=== PATIENT | male | born 1995 | race Caucasian/White ===

== ENCOUNTER 2017-01-15 20:41 | Emergency (ER) | payer OTHER ==
--- NOTE | 2017-01-15 21:28 | ED NURSING NOTES ---
Clinical Report - Nurses [facility] [address] [place] [address] 01/15/2017 20:44 Patient: SAVITA CARNEY TRIAGE Triage time 20:52. Acuity: LEVEL 3. Chief Complaint: COUGH, RUNNY NOSE and SORE THROAT and (SOB). --20:58 Charlie Mensah R.N. 20:52 01/15/17. BP: 129/68. HR: 103. RR: 18. O2 saturation: 99%. Temp: 101.3 F. Pain level now 8/10. --20:58 Charlie Mensah R.N. Weight: 86.1 kg stated. Height/Length: 77 inches Per Patient. BMI: 22.5. --20:57 Charlie Mensah R.N. Medications None. --20:56 Charlie Mensah R.N. Medication/allergy information source: the patient. --20:58 Charlie Mensah R.N. Allergies No Known Drug Allergy. --20:56 Charlie Mensah R.N. History Arrived by private vehicle. Historian: patient. Accompanied by family. Onset. (3 days ago). ( Pt came in with cough, runny nose and sore throat. Pt has been feeling sick for a few days. His gf was recently sick. Pt stated that it feels like razor blades when he swallows.). He has had a nasal discharge and a headache. 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 PAST MEDICAL HX: Immunizations: up-to-date. SOCIAL HX: Smoker- current status unknown. Never smoker. No alcohol use or drug use. --20:58 Charlie Mensah R.N. PROBLEMS: Migraine Headache. Sinusitis. --20:56 Charlie Mensah R.N. Interventions ID band on patient. To treatment room. --20:58 Charlie Mensah R.N. PHYSICAL ASSESSMENT 21:00 01/15/17. Ambulatory to room. GENERAL / NEURO / PSYCH: Alert. Oriented X 4. Appears in no acute distress. HEENT: Right ear within normal limits. Left ear within normal limits. Pharyngeal erythema. Right-sided tonsillar exudate, swelling and erythema. Left-sided tonsillar swelling and erythema. RESPIRATORY: No respiratory distress. Respirations not labored. Breath sounds within normal limits. CVS: Heart sounds within normal limits. Pulses: right radial 2+ and left radial 2+. Capillary refill less than 2 seconds. SKIN: Skin is warm and dry. --00:43 Jan Owens R.N. NURSING PROGRESS NOTES Patient gowned. Two patient identifiers checked. Call light placed in reach. Side rails up x 1. Bed placed in lowest position. Brakes of bed on. --20:58 Charlie Mensah R.N. FABIÁN COMA SCORE: Fabián Coma Scale: 15- eyes open spontaneously (4); best verbal response- oriented x 4 (5); best motor response- obeys commands (6). --20:58 Charlie Mensah R.N. 21:16 01/15/2017 Motrin PO 800 mg given. Allergies verified and confirmed 5 rights. --21:16 Charlie Mensah R.N. 21:16 01/15/2017 Hydrocodone-APAP (Hydrocodone-Acetaminophen) PO 5/325 mg Tablets 1 tab given. Allergies verified, confirmed 5 rights and sedative warning given to the patient. --21:16 Charlie Mensah R.N. 21:17 01/15/2017 Dexamethasone (Dexamethasone) PO 8 mg given. Allergies verified and confirmed 5 rights. --21:17 Charlie Mensah R.N. 21:36 01/15/2017 Amoxicillin PO Tablets 500 mg given. Allergies verified and confirmed 5 rights. --21:36 McQuoid, Sonia, ER Tech1 00:43 01/16/2017 Motrin PO Response: no adverse reaction. --00:44 Jan Owens R.N. 00:44 01/16/2017 Hydrocodone-APAP PO Response: no adverse reaction. --00:44 Jan Owens R.N. 00:44 01/16/2017 Dexamethasone PO Response: no adverse reaction. --00:44 Jan Owens R.N. 00:44 01/16/2017 Amoxicillin PO Response: no adverse reaction. --00:44 Jan Owens R.N. DISPOSITION / DISCHARGE 22:00 01/15/17. Departure time: 2199Jan 15 2017. Condition at departure: stable. The goals identified in the patient's plan of care were met. No learning barriers present. Discharge instructions provided and reviewed with the patient. Reviewed medication(s) side effects, precautions, dosing and course information. Prescription(s) given to the patient (Savita verbalizes importance of finishing all prescribed antibiotic.). Patient verbalized understanding. Written instructions provided in Greenlandic. ( Savita verbalizes understanding of all d/c instructions including need to f/u with PCP. He has no questions and voices no concerns at this time.). The patient was discharged by the physician information assistant. He was discharged home and accompanied by nutrition instructor. He left the Emergency Department ambulatory and via private vehicle. Patient driving. FABIÁN COMA SCORE: Fabián Coma Scale: 15- eyes open spontaneously (4); best verbal response- oriented x 4 (5); best motor response- obeys commands (6). --00:42 Jan Owens R.N. 22:00 01/15/17. BP: 118/61 (regular adult cuff) taken on the left arm, via an automated monitor, while lying. HR: 84 (normal rate). RR: 16 (regular, unlabored and normal). O2 saturation: 100% on room air. Temp: 100.6 F (oral). Pain level now: 0/10. --00:42 Jan Owens R.N. Locked/Released at 01/16/2017 0:44 by Jan Owens R.N.
--- NOTE | 2017-01-15 21:28 | ED CLINICAL REPORT ---
Clinical Report - Physicians/Mid Levels [facility] [address] [place] [address] 01/15/2017 20:44 Patient: SAVITA CARNEY Time Seen: 21:16 Jan 15 2017. Arrived- By private vehicle. Historian- patient. HISTORY OF PRESENT ILLNESS Chief Complaint: SORE THROAT. This started just prior to arrival and is still present. Pain described as mild. The patient has had a sore throat. (She reports being all over the last 2 weeks, with flulike symptoms, now with a fever and sore throat. Denies any recent exposures to mono or strep pharyngitis. Reports a dry cough as well.). REVIEW OF SYSTEMS No fever, cough, diarrhea or abdominal pain. All systems otherwise negative, except as recorded above. PAST HISTORY Problems: Migraine Headache. Sinusitis. Medications: None. Allergies: No Known Drug Allergy. SOCIAL HISTORY Never smoker. No alcohol use or drug use. ADDITIONAL NOTES The nursing notes have been reviewed. PHYSICAL EXAM Vital Signs: 01/15/2017 20:52 BP: 129/68. HR: 103. RR: 18. O2 saturation: 99%. Temp: 101.3 F. Appearance: Alert. Head: Normal external inspection. Eyes: Conjunctivae and eyelids normal. ENT: Nose normal. Pharyngeal erythema. Tonsillar exudate present. Lips normal. No trismus present. Uvula midline. No muffled or hoarse voice, drooling, dental tenderness or trismus. Neck: Lymphadenopathy present. Trachea midline. CVS: Normal heart rate and rhythm. Heart sounds normal. Respiratory: No respiratory distress. Breath sounds normal. No rales. Abdomen: Soft. No organomegaly. No abdominal tenderness or rebound tenderness. Skin: No rash. LABS, X-RAYS, AND EKG Laboratory Tests: Culture, Strep Screen: (AVANI: 01/15/2017 20:55) ( MsgRcvd 01/15/2017 21:18) Final results Test Result Flag Units (Reference) RAPID STREP SCREEN - THROAT DATE: 01/15/17 NEGATIVE SCREEN: RAPID STREP SCREEN NEGATIVE; CONFIRMATION TO FOLLOW . PROGRESS AND PROCEDURES Course of Care: / centor criteria, No cough in the ER. Uvula midline, no signs of retropharyngeal abscess. Rapid strep negative. Patient very stable. Given a dose of dexamethasone, Zosyn and antibiotics in the ER. Patient agrees with plan to have high liquid diet. Otherwise stable. Tolerating own secretions well. Patient is stable. Physical exam findings are improved. Symptoms better. Patient/family counseled. Disposition: Discharged. Condition: good. CLINICAL IMPRESSION Acute streptococcal pharyngitis INSTRUCTIONS No strenuous activity. Do not work for one day. Rest. Drink plenty of fluids. Prescription Medications: Amoxicillin 500 mg tablets: Take 1 orally every 8 hours for 10 days. Dispense thirty (30). No refills. OTC Medications: Acetaminophen ER 650 mg (available over the counter): take 1 orally every 8 hours for 5 days, as needed for fever. Dispense fifteen (15). No refill. Motrin IB 200 mg (available over the counter): take 4 orally every 8 hours for 5 days, as needed for pain Follow-up: Follow up with your doctor in three days. (Electronically signed by Luanne Ocampo P.A.-C 01/15/2017 22:12)
--- NOTE | 2017-01-15 21:28 | ED CLINICAL REPORT ---
Clinical Report - Physicians/Mid Levels [facility] [address] [place] [address] 01/15/2017 20:44 Patient: SAVITA CARNEY Time Seen: 21:16 Jan 15 2017. Arrived- By private vehicle. Historian- patient. HISTORY OF PRESENT ILLNESS Chief Complaint: SORE THROAT. This started just prior to arrival and is still present. Pain described as mild. The patient has had a sore throat. (She reports being all over the last 2 weeks, with flulike symptoms, now with a fever and sore throat. Denies any recent exposures to mono or strep pharyngitis. Reports a dry cough as well.). REVIEW OF SYSTEMS No fever, cough, diarrhea or abdominal pain. All systems otherwise negative, except as recorded above. PAST HISTORY Problems: Migraine Headache. Sinusitis. Medications: None. Allergies: No Known Drug Allergy. SOCIAL HISTORY Never smoker. No alcohol use or drug use. ADDITIONAL NOTES The nursing notes have been reviewed. PHYSICAL EXAM Vital Signs: 01/15/2017 20:52 BP: 129/68. HR: 103. RR: 18. O2 saturation: 99%. Temp: 101.3 F. Appearance: Alert. Head: Normal external inspection. Eyes: Conjunctivae and eyelids normal. ENT: Nose normal. Pharyngeal erythema. Tonsillar exudate present. Lips normal. No trismus present. Uvula midline. No muffled or hoarse voice, drooling, dental tenderness or trismus. Neck: Lymphadenopathy present. Trachea midline. CVS: Normal heart rate and rhythm. Heart sounds normal. Respiratory: No respiratory distress. Breath sounds normal. No rales. Abdomen: Soft. No organomegaly. No abdominal tenderness or rebound tenderness. Skin: No rash. LABS, X-RAYS, AND EKG Laboratory Tests: Culture, Strep Screen: (AVANI: 01/15/2017 20:55) ( MsgRcvd 01/15/2017 21:18) Final results Test Result Flag Units (Reference) RAPID STREP SCREEN - THROAT DATE: 01/15/17 NEGATIVE SCREEN: RAPID STREP SCREEN NEGATIVE; CONFIRMATION TO FOLLOW . PROGRESS AND PROCEDURES Course of Care: / centor criteria, No cough in the ER. Uvula midline, no signs of retropharyngeal abscess. Rapid strep negative. Patient very stable. Given a dose of dexamethasone, Zosyn and antibiotics in the ER. Patient agrees with plan to have high liquid diet. Otherwise stable. Tolerating own secretions well. Patient is stable. Physical exam findings are improved. Symptoms better. Patient/family counseled. Disposition: Discharged. Condition: good. CLINICAL IMPRESSION Acute streptococcal pharyngitis INSTRUCTIONS No strenuous activity. Do not work for one day. Rest. Drink plenty of fluids. Prescription Medications: Amoxicillin 500 mg tablets: Take 1 orally every 8 hours for 10 days. Dispense thirty (30). No refills. OTC Medications: Acetaminophen ER 650 mg (available over the counter): take 1 orally every 8 hours for 5 days, as needed for fever. Dispense fifteen (15). No refill. Motrin IB 200 mg (available over the counter): take 4 orally every 8 hours for 5 days, as needed for pain Follow-up: Follow up with your doctor in three days. (Electronically signed by Luanne Ocampo P.A.-C 01/15/2017 22:12)
--- NOTE | 2017-01-15 21:28 | ED NURSING NOTES ---
Clinical Report - Nurses [facility] [address] [place] [address] 01/15/2017 20:44 Patient: SAVITA CARNEY TRIAGE Triage time 20:52. Acuity: LEVEL 3. Chief Complaint: COUGH, RUNNY NOSE and SORE THROAT and (SOB). --20:58 Charlie Mensah R.N. 20:52 01/15/17. BP: 129/68. HR: 103. RR: 18. O2 saturation: 99%. Temp: 101.3 F. Pain level now 8/10. --20:58 Charlie Mensah R.N. Weight: 86.1 kg stated. Height/Length: 77 inches Per Patient. BMI: 22.5. --20:57 Charlie Mensah R.N. Medications None. --20:56 Charlie Mensah R.N. Medication/allergy information source: the patient. --20:58 Charlie Mensah R.N. Allergies No Known Drug Allergy. --20:56 Charlie Mensah R.N. History Arrived by private vehicle. Historian: patient. Accompanied by family. Onset. (3 days ago). ( Pt came in with cough, runny nose and sore throat. Pt has been feeling sick for a few days. His gf was recently sick. Pt stated that it feels like razor blades when he swallows.). He has had a nasal discharge and a headache. 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 PAST MEDICAL HX: Immunizations: up-to-date. SOCIAL HX: Smoker- current status unknown. Never smoker. No alcohol use or drug use. --20:58 Charlie Mensah R.N. PROBLEMS: Migraine Headache. Sinusitis. --20:56 Charlie Mensah R.N. Interventions ID band on patient. To treatment room. --20:58 Charlie Mensah R.N. PHYSICAL ASSESSMENT 21:00 01/15/17. Ambulatory to room. GENERAL / NEURO / PSYCH: Alert. Oriented X 4. Appears in no acute distress. HEENT: Right ear within normal limits. Left ear within normal limits. Pharyngeal erythema. Right-sided tonsillar exudate, swelling and erythema. Left-sided tonsillar swelling and erythema. RESPIRATORY: No respiratory distress. Respirations not labored. Breath sounds within normal limits. CVS: Heart sounds within normal limits. Pulses: right radial 2+ and left radial 2+. Capillary refill less than 2 seconds. SKIN: Skin is warm and dry. --00:43 Jan Owens R.N. NURSING PROGRESS NOTES Patient gowned. Two patient identifiers checked. Call light placed in reach. Side rails up x 1. Bed placed in lowest position. Brakes of bed on. --20:58 Charlie Mensah R.N. FABIÁN COMA SCORE: Fabián Coma Scale: 15- eyes open spontaneously (4); best verbal response- oriented x 4 (5); best motor response- obeys commands (6). --20:58 Charlie Mensah R.N. 21:16 01/15/2017 Motrin PO 800 mg given. Allergies verified and confirmed 5 rights. --21:16 Charlie Mensah R.N. 21:16 01/15/2017 Hydrocodone-APAP (Hydrocodone-Acetaminophen) PO 5/325 mg Tablets 1 tab given. Allergies verified, confirmed 5 rights and sedative warning given to the patient. --21:16 Charlie Mensah R.N. 21:17 01/15/2017 Dexamethasone (Dexamethasone) PO 8 mg given. Allergies verified and confirmed 5 rights. --21:17 Charlie Mensah R.N. 21:36 01/15/2017 Amoxicillin PO Tablets 500 mg given. Allergies verified and confirmed 5 rights. --21:36 McQuoid, Sonia, ER Tech1 00:43 01/16/2017 Motrin PO Response: no adverse reaction. --00:44 Jan Owens R.N. 00:44 01/16/2017 Hydrocodone-APAP PO Response: no adverse reaction. --00:44 Jan Owens R.N. 00:44 01/16/2017 Dexamethasone PO Response: no adverse reaction. --00:44 Jan Owens R.N. 00:44 01/16/2017 Amoxicillin PO Response: no adverse reaction. --00:44 Jan Owens R.N. DISPOSITION / DISCHARGE 22:00 01/15/17. Departure time: 2199Jan 15 2017. Condition at departure: stable. The goals identified in the patient's plan of care were met. No learning barriers present. Discharge instructions provided and reviewed with the patient. Reviewed medication(s) side effects, precautions, dosing and course information. Prescription(s) given to the patient (Savita verbalizes importance of finishing all prescribed antibiotic.). Patient verbalized understanding. Written instructions provided in Persian. ( Savita verbalizes understanding of all d/c instructions including need to f/u with PCP. He has no questions and voices no concerns at this time.). The patient was discharged by the physician travel assistant. He was discharged home and accompanied by superintendent plant. He left the Emergency Department ambulatory and via private vehicle. Patient driving. FABIÁN COMA SCORE: Fabián Coma Scale: 15- eyes open spontaneously (4); best verbal response- oriented x 4 (5); best motor response- obeys commands (6). --00:42 Jan Owens R.N. 22:00 01/15/17. BP: 118/61 (regular adult cuff) taken on the left arm, via an automated monitor, while lying. HR: 84 (normal rate). RR: 16 (regular, unlabored and normal). O2 saturation: 100% on room air. Temp: 100.6 F (oral). Pain level now: 0/10. --00:42 Jan Owens R.N. Locked/Released at 01/16/2017 0:44 by Jan Owens R.N.
--- NOTE | 2017-01-15 21:28 | ED ORDER SUMMARY ---
..... Patient: SAVITA CARNEY OrderSheet [facility] VisitID: [id number] [place] [address] 21y, M Registration Date/Time: 01/15/2017 ORDER SHEET Weight: 86.1 kg (stated) Allergies: No Known Drug Allergy GENERAL ORDERS: Culture, Strep Screen Urgent (21:04 01/15/2017 EKoroleva P.A.-C) (21:06 TLewis R.N.) (Ack 21:07 SRedmond) MEDICATION ORDERS: Motrin PO 800 mg (NOW) (21:04 01/15/2017 EKoroleva P.A.-C) (21:16 TLewis R.N.) Hydrocodone-APAP PO 5/325 mg (NOW) (21:04 01/15/2017 EKoroleva P.A.-C) (21:16 TLewis R.N.) Dexamethasone PO 8mg (NOW) (21:04 01/15/2017 EKoroleva P.A.-C) (21:17 TLewis R.N.) Amoxicillin PO 500 mg (NOW) (21:27 01/15/2017 EKoroleva P.A.-C) (Ack 21:29 SRoberts R.N.) (21:36 AMcQuoid ER Tech1) IV FLUIDS: ORDER SHEET NOTES: [Electronically signed by Luanne Ocampo PTamyA.-C (22:11 01/15/2017)] [Electronically signed by Jan Owens R.N. (00:44 01/16/2017)] [Electronically locked/signed by Jan Owens R.N. (00:44 01/16/2017)]
--- NOTE | 2017-01-15 21:28 | ED ORDER SUMMARY ---
..... Patient: SAVITA CARNEY OrderSheet [facility] VisitID: [id number] [place] [address] 21y, M Registration Date/Time: 01/15/2017 ORDER SHEET Weight: 86.1 kg (stated) Allergies: No Known Drug Allergy GENERAL ORDERS: Culture, Strep Screen Urgent (21:04 01/15/2017 EKoroleva P.A.-C) (21:06 TLewis R.N.) (Ack 21:07 SRedmond) MEDICATION ORDERS: Motrin PO 800 mg (NOW) (21:04 01/15/2017 EKoroleva P.A.-C) (21:16 TLewis R.N.) Hydrocodone-APAP PO 5/325 mg (NOW) (21:04 01/15/2017 EKoroleva P.A.-C) (21:16 TLewis R.N.) Dexamethasone PO 8mg (NOW) (21:04 01/15/2017 EKoroleva P.A.-C) (21:17 TLewis R.N.) Amoxicillin PO 500 mg (NOW) (21:27 01/15/2017 EKoroleva P.A.-C) (Ack 21:29 SRoberts R.N.) (21:36 AMcQuoid ER Tech1) IV FLUIDS: ORDER SHEET NOTES: [Electronically signed by Luanne Ocampo PTamyA.-C (22:11 01/15/2017)] [Electronically signed by Jan Owens R.N. (00:44 01/16/2017)] [Electronically locked/signed by Jan Owens R.N. (00:44 01/16/2017)]
--- NOTE | 2017-01-16 00:44 | ED DISCHARGE INSTRUCTIONS ---
Patient: SAVITA CARNEY General Instructions [facility] VisitID: [id number] [place] [address] 21y, M Registration Date/Time: 01/15/2017 Acute streptococcal pharyngitis INSTRUCTIONS No strenuous activity. Do not work for one day. Rest. Drink plenty of fluids. Prescription Medications: Amoxicillin 500 mg tablets: Take 1 orally every 8 hours for 10 days. Dispense thirty (30). No refills. OTC Medications: Acetaminophen ER 650 mg (available over the counter): take 1 orally every 8 hours for 5 days, as needed for fever. Dispense fifteen (15). No refill. Motrin IB 200 mg (available over the counter): take 4 orally every 8 hours for 5 days, as needed for pain Follow-up: Follow up with your doctor in three days. ADDITIONAL INFORMATION Pharyngitis: Strep [Presumed] Your illness has the signs of a strep throat infection. Strep throat is a contagious illness. It is spread by coughing, kissing or by touching others after touching your mouth or nose. Symptoms include throat pain worse with swallowing, aching all over, headache and fever. You will be treated with an antibiotic, which should make you start to feel better within 1-2 days. Home Care: Rest at home and drink plenty of fluids to avoid dehydration. No school or work for the first two days on antibiotics. You will not be contagious after this time, and if you are feeling better, you can return to school or work. Take your antibiotics for a full 10 days, even if you feel better after the first few days of treatment. This is very important to prevent complications from the strep infection (such as heart or kidney disease). Children: Use acetaminophen (Tylenol) for fever, fussiness or discomfort. In infants over six months of age, you may use ibuprofen (Children's Motrin) instead of Tylenol. [NOTE: If your child has chronic liver or kidney disease or ever had a stomach ulcer or GI bleeding, talk with your doctor before using these medicines.] (Aspirin should never be used in anyone under 18 years of age who is ill with a fever. It may cause severe liver damage.) Adults: You may use acetaminophen (Tylenol) or ibuprofen (Motrin, Advil) to control pain or fever, unless another medicine was prescribed for this. [NOTE: If you have chronic liver or kidney disease or ever had a stomach ulcer or GI bleeding, talk with your doctor before using these medicines.] Throat lozenges or sprays (Chloraseptic and others) will reduce pain. Gargling with warm salt water will also reduce throat pain. Dissolve 1/2 teaspoon of salt in 1 glass of warm water. This is especially useful just before meals. Follow Up with your doctor or as directed by our staff if you are not improving over the next week. Get Prompt Medical Attention if any of the following occur: Fever over 100.5F (38.0C) oral, or over 101.5F (38.6C) rectal for more than three days New or worsening ear pain, sinus pain or headache Painful lumps in the back of your neck Unable to swallow liquids or open your mouth wide due to throat pain Trouble breathing or noisy breathing Muffled voice New rash Acetaminophen Oral tablet What is this medicine? ACETAMINOPHEN (a set a SALOMON saba fen) is a pain reliever. It is used to treat mild pain and fever. How should I use this medicine? Take this medicine by mouth with a glass of water. Follow the directions on the package or prescription label. Take your medicine at regular intervals. Do not take your medicine more often than directed. Talk to your child and family therapist regarding the use of this medicine in children. While this drug may be prescribed for children as young as 6 years of age for selected conditions, precautions do apply. What side effects may I notice from receiving this medicine? Side effects that you should report to your doctor or health urgent care technician as soon as possible: allergic reactions like skin rash, itching or hives, swelling of the face, lips, or tongue breathing problems fever or sore throat redness, blistering, peeling or loosening of the skin, including inside the mouth trouble passing urine or change in the amount of urine unusual bleeding or bruising unusually weak or tired yellowing of the eyes or skin Side effects that usually do not require medical attention (report to your doctor or health urgent care technician if they continue or are bothersome): headache nausea, stomach upset What may interact with this medicine? alcohol imatinib isoniazid other medicines with acetaminophen What if I miss a dose? If you miss a dose, take it as soon as you can. If it is almost time for your next dose, take only that dose. Do not take double or extra doses. Where should I keep my medicine? Keep out of reach of children. Store at room temperature between 20 and 25 degrees C (68 and 77 degrees F). Protect from moisture and heat. Throw away any unused medicine after the expiration date. What should I tell my health care provider before I take this medicine? They need to know if you have any of these conditions: if you frequently drink alcohol containing drinks liver disease an unusual or allergic reaction to acetaminophen, other medicines, foods, dyes or preservatives or trying to get breast-feeding What should I watch for while using this medicine? Tell your doctor or health urgent care technician if the pain lasts more than 10 days (5 days for children), if it gets worse, or if there is a new or different kind of pain. Also, check with your doctor if a fever lasts for more than 3 days. Do not take other medicines that contain acetaminophen with this medicine. Always read labels carefully. If you have questions, ask your doctor or pharmacist. If you take too much acetaminophen get medical help right away. Too much acetaminophen can be very dangerous and cause liver damage. Even if you do not have symptoms, it is important to get help right away. Ibuprofen Oral tablet What is this medicine? IBUPROFEN (eye BYOO proe fen) is a non-steroidal anti-inflammatory drug (NSAID). It is used for dental pain, fever, headaches or migraines, osteoarthritis, rheumatoid arthritis, or painful monthly periods. It can also relieve minor aches and pains caused by a cold, flu, or sore throat. How should I use this medicine? Take this medicine by mouth with a glass of water. Follow the directions on the prescription label. Take this medicine with food if your stomach gets upset. Try to not lie down for at least 10 minutes after you take the medicine. Take your medicine at regular intervals. Do not take your medicine more often than directed. A special MedGuide will be given to you by the pharmacist with each prescription and refill. Be sure to read this information carefully each time. Talk to your child and family therapist regarding the use of this medicine in children. Special care may be needed. What side effects may I notice from receiving this medicine? Side effects that you should report to your doctor or health urgent care technician as soon as possible: allergic reactions like skin rash, itching or hives, swelling of the face, lips, or tongue black or bloody stools, blood in the urine or in vomit breathing problems changes in vision chest pain general ill feeling or flu-like symptoms nausea or vomiting redness, blistering, peeling or loosening of the skin, including inside the mouth slurred speech or weakness on one side of the body stomach pain unexplained weight gain or swelling unusually weak or tired yellowing of eyes or skin Side effects that usually do not require medical attention (report to your doctor or health urgent care technician if they continue or are bothersome): constipation or diarrhea dizziness gas or heartburn stomach upset What may interact with this medicine? Do not take this medicine with any of the following medications: cidofovir ketorolac methotrexate pemetrexed This medicine may also interact with the following medications: alcohol aspirin diuretics lithium other drugs for inflammation like prednisone warfarin What if I miss a dose? If you miss a dose, take it as soon as you can. If it is almost time for your next dose, take only that dose. Do not take double or extra doses. Where should I keep my medicine? Keep out of the reach of children. Store at room temperature between 15 and 30 degrees C (59 and 86 degrees F). Keep container tightly closed. Throw away any unused medicine after the expiration date. What should I tell my health care provider before I take this medicine? They need to know if you have any of these conditions: asthma cigarette smoker drink more than 3 alcohol containing drinks a day heart disease or circulation problems such as heart failure or leg edema (fluid retention) high blood pressure kidney disease liver disease stomach bleeding or ulcers an unusual or allergic reaction to ibuprofen, aspirin, other NSAIDS, other medicines, foods, dyes, or preservatives or trying to get breast-feeding What should I watch for while using this medicine? Tell your doctor or healthcare professional if your symptoms do not start to get better or if they get worse. This medicine does not prevent heart attack or stroke. In fact, this medicine may increase the chance of a heart attack or stroke. The chance may increase with longer use of this medicine and in people who have heart disease. If you take aspirin to prevent heart attack or stroke, talk with your doctor or health urgent care technician. Do not take other medicines that contain aspirin, ibuprofen, or naproxen with this medicine. Side effects such as stomach upset, nausea, or ulcers may be more likely to occur. Many medicines available without a prescription should not be taken with this medicine. This medicine can cause ulcers and bleeding in the stomach and intestines at any time during treatment. Ulcers and bleeding can happen without warning symptoms and can cause . To reduce your risk, do not smoke cigarettes or drink alcohol while you are taking this medicine. You may get drowsy or dizzy. Do not drive, use machinery, or do anything that needs mental alertness until you know how this medicine affects you. Do not stand or sit up quickly, especially if you are an older patient. This reduces the risk of dizzy or fainting spells. This medicine can cause you to bleed more easily. Try to avoid damage to your teeth and gums when you brush or floss your teeth. You have been given the following additional information: Pharyngitis, Strep (Presumed) Acetaminophen Oral tablet Ibuprofen Oral tablet No strenuous activity. Do not work for one day. Rest. (Electronically signed by Luanne cOampo P.A.-C 01/15/2017 22:12)
--- NOTE | 2017-01-16 00:44 | ED MED RECONCILIATION SUMMARY ---
Patient: SAVITA CARNEY Medication Reconciliation Report [facility] VisitID: [id number] [place] [address] 21y, M Registration Date/Time: 01/15/2017 Weight: 86.1 kg Height/Length: 77 in. BMI: 22.5 ALLERGIES: No Known Drug Allergy The patient's Home Medications are listed below: NONE. The source(s) of the original Home Medication information: patient The following Medications were given to the patient in the Emergency Department: Motrin [PO] PO 800 mg, administered: 01/15/2017 9:16:00 PM Hydrocodone-APAP [PO] PO 1 tab, administered: 01/15/2017 9:16:00 PM Dexamethasone [PO] PO 8 mg, administered: 01/15/2017 9:17:00 PM Amoxicillin [PO] PO 500 mg, administered: 01/15/2017 9:36:00 PM The following Medications were prescribed to the patient: Acetaminophen ER 650 mg (available over the counter): take 1 orally every 8 hours for 5 days, as needed for fever. Dispense fifteen (15). No refill. -- Luanne Ocampo, P.A.-C Motrin IB 200 mg (available over the counter): take 4 orally every 8 hours for 5 days, as needed for pain -- Luanne Ocampo, P.A.-C Amoxicillin 500 mg tablets: Take 1 orally every 8 hours for 10 days. Dispense thirty (30). No refills. -- Luanne Ocampo, P.A.-C
--- NOTE | 2017-01-16 00:44 | ED MAR SUMMARY ---
..... Medication Administration Record [facility] [address] [place] [address] Patient: SAVITA CARNEY Visit ID: [id number] 21y, M Weight: 86.1 kg Height/Length: 77 in BMI: 22.5 ALLERGIES: No Known Drug Allergy Given 21:16 01/15/2017 Charlie Mensah R.N. Medication Administered: MOTRIN [PO], Dose: 800 mg PO. Medication Ordered: Motrin PO 800 mg (NOW). Given 21:16 01/15/2017 Charlie Mensah R.N. Medication Administered: HYDROCODONE-APAP [PO] (HYDROCODONE-ACETAMINOPHEN), Dose: 1 tab 5/325 mg Tablets PO. Medication Ordered: Hydrocodone-APAP PO 5/325 mg (NOW). Given 21:17 01/15/2017 Charlie Mensah R.N. Medication Administered: DEXAMETHASONE [PO] (DEXAMETHASONE), Dose: 8 mg PO. Medication Ordered: Dexamethasone PO 8mg (NOW). Given :01/15/2017 Sonia Pena ER Tech1 Medication Administered: AMOXICILLIN [PO], Dose: 500 mg Tablets PO. Medication Ordered: Amoxicillin PO 500 mg (NOW).
--- NOTE | 2017-01-16 00:44 | ED MED RECONCILIATION SUMMARY ---
Patient: SAVITA CARNEY Medication Reconciliation Report [facility] VisitID: [id number] [place] [address] 21y, M Registration Date/Time: 01/15/2017 Weight: 86.1 kg Height/Length: 77 in. BMI: 22.5 ALLERGIES: No Known Drug Allergy The patient's Home Medications are listed below: NONE. The source(s) of the original Home Medication information: patient The following Medications were given to the patient in the Emergency Department: Motrin [PO] PO 800 mg, administered: 01/15/2017 9:16:00 PM Hydrocodone-APAP [PO] PO 1 tab, administered: 01/15/2017 9:16:00 PM Dexamethasone [PO] PO 8 mg, administered: 01/15/2017 9:17:00 PM Amoxicillin [PO] PO 500 mg, administered: 01/15/2017 9:36:00 PM The following Medications were prescribed to the patient: Acetaminophen ER 650 mg (available over the counter): take 1 orally every 8 hours for 5 days, as needed for fever. Dispense fifteen (15). No refill. -- Luanne Ocampo, P.A.-C Motrin IB 200 mg (available over the counter): take 4 orally every 8 hours for 5 days, as needed for pain -- Luanne Ocampo, P.A.-C Amoxicillin 500 mg tablets: Take 1 orally every 8 hours for 10 days. Dispense thirty (30). No refills. -- Luanne Ocampo, P.A.-C
--- NOTE | 2017-01-16 00:44 | ED MAR SUMMARY ---
..... Medication Administration Record [facility] [address] [place] [address] Patient: SAVITA CARNEY Visit ID: [id number] 21y, M Weight: 86.1 kg Height/Length: 77 in BMI: 22.5 ALLERGIES: No Known Drug Allergy Given 21:16 01/15/2017 Charlie Mensah R.N. Medication Administered: MOTRIN [PO], Dose: 800 mg PO. Medication Ordered: Motrin PO 800 mg (NOW). Given 21:16 01/15/2017 Charlie Mensah R.N. Medication Administered: HYDROCODONE-APAP [PO] (HYDROCODONE-ACETAMINOPHEN), Dose: 1 tab 5/325 mg Tablets PO. Medication Ordered: Hydrocodone-APAP PO 5/325 mg (NOW). Given 21:17 01/15/2017 Charlie Mensah R.N. Medication Administered: DEXAMETHASONE [PO] (DEXAMETHASONE), Dose: 8 mg PO. Medication Ordered: Dexamethasone PO 8mg (NOW). Given :01/15/2017 Sonia Pena ER Tech1 Medication Administered: AMOXICILLIN [PO], Dose: 500 mg Tablets PO. Medication Ordered: Amoxicillin PO 500 mg (NOW).
== END 2017-01-15 22:00 | disposition home or self-care (01) ==
LOC: ED SRH 20:41
DX: J02.0 Streptococcal pharyngitis (principal); G43.909 Migraine, unspecified, not intractable, without status migrainosus
CPT/HCPCS: 90154; 90159